=== PATIENT | female | born 1970 ===

== ENCOUNTER 2019-01-09 07:59 | Outpatient (CLI) | payer OTHER ==
[~2019-01-09] VITALS: Ht 154.9 cm; Wt 57.6 kg
== END 2019-01-09 08:15 | disposition home or self-care (01) ==
LOC: OFIC 805 07:59
DX: E05.20 Thyrotoxicosis with toxic multinodular goiter without thyrotoxic crisis or storm (principal); R49.0 Dysphonia

== ENCOUNTER 2019-04-23 06:00 | Inpatient (IN) | payer OTHER ==
[2019-04-24] MEDS ORDERED: SYNTHROID75 MCG PO (13:41)
[2019-04-24] MEDS ORDERED: PERCOCET 5-3251 EACH PO (13:41)
== END 2019-04-24 14:52 | disposition home or self-care (01) | DRG 627 ==
LOC: CIR.AMB 06:00 → SURH 07:00 → EDSTATUS 12:30 → SURH 12:30 → CIR.AMB 12:30 → O/R 14:08 → SURH 14:08
PROVIDERS: ADMIT Surgery
PROC: 0GTH0ZZ Resection of Right Thyroid Gland Lobe, Open Approach (ICD-10-PCS; principal; 2019-04-23 07:00)
DX: E05.20 Thyrotoxicosis with toxic multinodular goiter without thyrotoxic crisis or storm (principal); E21.2 Other hyperparathyroidism